=== PATIENT | female | born 1960 | race Caucasian/White ===

== ENCOUNTER 2023-02-27 14:29 | Observation (INO) | payer MEDICAID, SELFPAY ==
[2023-02-27] VITALS (11 sets, daily range): BP systolic 108–126; BP diastolic 64–78; PULSE 82–100; RESP 14–26; TEMP 37.1–37.2; O2SAT 88–99; BMI 44.1
--- NOTE | 2023-02-27 14:31 | XR_ITS ---
The [address] [address] Patient Name: DEREK CANO MRN: [id number] date: 1960 Sex: F Assigned Patient Location: ER Current Patient Location: ER Accession/Order Number: [id number] Exam Date: 02/27/2023 15:00 Report Date: 02/27/2023 15:12 At the request of: ROLDAN NGUYEN Procedure: XR chest 1V EXAM: XR chest 1V HISTORY: . Dyspnea . COMPARISON: 08/18/2022 TECHNIQUE: Single view of the chest FINDINGS: Heart and vascularity are unremarkable. Lungs are free of focal infiltrates. Atherosclerotic changes of the thoracic aorta are noted. Right shoulder arthroplasty is noted. IMPRESSION: No acute heart or lung disease identified. Electronically authenticated by: MICHELLE VAZ Date: 02/27/2023 15:12
--- NOTE | 2023-02-27 14:31 | ECG_ITS ---
The [facility] Test Date: 2023-02-27 Pat Name: DEREK CANO Department: Room: - Gender: Female International Coordinator: : 1960 Requested By: TAVIA BERKOWITZ Order Number: [id number] Reading MD: MARANDA PARSONS Measurements Intervals [place] Rate: 93 P: 72 NM: 134 QRS: 7 QRSD: 86 T: 55 QT: 350 QTc: 400 Interpretive Statements 1100 Sinus rhythm 8102 Low QRS voltage in chest leads 9120 atypical ECG No previous ECG available for comparison Electronically Signed On 02-27-2023 22:51:05 EDT by MARANDA PARSONS
--- NOTE | 2023-02-27 14:32 | ED_ITS ---
Documented by User: CLARENCE Johnson 02/27/23 17:56 HPI - SOB/Dyspnea General Chief Complaint: Shortness of Breath/Dyspnea Stated Complaint: SHORTNESS OF BREATH Time Seen by Provider: 02/27/23 14:31 Source: patient and family Mode of arrival: Wheelchair History of Present Illness HPI Narrative: Patient is a 62-year-old female who presents to the emergency department for the evaluation of shortness of breath. She was referred from her PCP office for a one-week history of shortness of breath, lower extremity swelling. 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 She was previously on oxygen at 2 L by nasal cannula chronically, one month ago the oxygen was removed as she did not follow up for a walk study per her PCP. She has had no fevers, she denies chest pain, vomiting, diarrhea. No other upper respiratory symptoms reported. Related Data Home Medications Medication Instructions Recorded Confirmed albuterol sulfate 90 mcg/actuation 2 inh inhalation Q4H PRN shortness 02/27/23 02/27/23 aerosol inhaler (ProAir HFA) of breath or wheezing aripiprazole 10 mg tablet (Abilify) 10 mg PO DAILY 02/27/23 02/27/23 atorvastatin 10 mg tablet 10 mg PO DAILY 02/27/23 02/27/23 calcium carbonate 600 mg-vitamin 1 tab PO BID 02/27/23 02/27/23 D3 10 mcg (400 unit) tablet (Calcium 600 + D(3)) diclofenac sodium 50 mg 50 mg PO BID PRN pain 02/27/23 02/27/23 tablet,delayed release duloxetine 30 mg capsule,delayed 30 mg PO .hs 02/27/23 02/27/23 release (Cymbalta) duloxetine 60 mg capsule,delayed 60 mg PO DAILY 02/27/23 02/27/23 release (Cymbalta) empagliflozin 10 mg tablet 10 mg PO DAILY 02/27/23 02/27/23 (Jardiance) fluticasone fur. 100 mcg-umeclid 1 inh inhalation DAILY 02/27/23 02/27/23 62.5 mcg-vilant 25 mcg inhalat.powder (Trelegy Ellipta) furosemide 20 mg tablet (Lasix) 20 mg PO DAILY 02/27/23 02/27/23 gabapentin 400 mg capsule 400 mg PO DAILY 02/27/23 02/27/23 ipratropium 0.5 mg-albuterol 3 mg 3 ml inhalation Q6H PRN shortness 02/27/23 02/27/23 (2.5 mg base)/3 mL nebulization of breath or wheezing soln lisinopril 5 mg tablet 5 mg PO DAILY 02/27/23 02/27/23 loratadine 10 mg tablet 10 mg PO DAILY 02/27/23 02/27/23 (Allerclear) metformin 1,000 mg 24 hr 1,000 mg PO BID 02/27/23 02/27/23 tablet,extended release (Glumetza) multivitamin (Daily Multi-Vitamin 1 tab PO DAILY 02/27/23 02/27/23 tablet) multivitamin (Daily Multi-Vitamin 1 tab PO DAILY 02/27/23 02/27/23 tablet) Allergies Allergy/AdvReac Type Severity Reaction Status Date / Time sulfamethoxazole Allergy Severe Verified 02/27/23 14:34 [From Bactrim] trimethoprim [From Bactrim] Allergy Severe Verified 02/27/23 14:34 Review of Systems ROS Constitutional Denies: fever or chills Cardiovascular Denies: chest pain Respiratory Reports: shortness of breath and cough Gastrointestinal Denies: nausea or vomiting Integumentary/Breast Denies: rash [facility] Medical History (Updated 02/27/23 @ 17:54 by CLARENCE Johnson) Social History Smoking status: Former smoker Previous occupational history: Retired, lives at home Tobacco Smoking status: Former smoker Occupational History Previous occupational history: Retired, lives at home Exam Narrative Exam Narrative: Gen.: Awake, alert, in no distress Head: Normocephalic, atraumatic ENT: Moist mucous membranes Respiratory: No respiratory distress, oxygen by nasal cannula, wheezing noted faintly on expiration Cardio: Regular rate and rhythm Gastrointestinal: Abdomen is soft, nondistended and nontender to palpation Extremities: Moves extremities equally, no injuries noted; bilateral lower extremities are edematous, erythematous with serous blisters noted. 2+ pitting edema bilaterally Psych: Normal mood and affect Neuro: No focal neuro deficit Skin: Warm, dry, intact Constitutional Vital Signs - 24 hr 02/27/23 14:35 02/27/23 14:57 02/27/23 15:39 Temperature 98.9 F Pulse Rate Pulse Rate [Monitor] 100 H Respiratory Rate 22 Blood Pressure Blood Pressure [Left Arm] 121/69 H Pulse Oximetry 88 L 99 Oxygen Delivery Method Room Air Nasal Cannula Nasal Cannula Oxygen Delivery Flow Rate 3 3 02/27/23 15:50 02/27/23 16:05 02/27/23 16:42 Temperature Pulse Rate 87 88 Pulse Rate [Monitor] Respiratory Rate 26 H 24 Blood Pressure 126/66 H 111/65 Blood Pressure [Left Arm] Pulse Oximetry 98 98 Oxygen Delivery Method Oxygen Delivery Flow Rate 02/27/23 17:16 02/27/23 17:17 Temperature Pulse Rate 88 Pulse Rate [Monitor] Respiratory Rate 26 H Blood Pressure 108/64 Blood Pressure [Left Arm] Pulse Oximetry 96 Oxygen Delivery Method Nasal Cannula Oxygen Delivery Flow Rate 3 3 Course Vital Signs Vital signs: Vital Signs Temperature 98.9 F 02/27/23 14:35 Pulse Rate 100 H 02/27/23 14:35 Respiratory Rate 22 02/27/23 14:35 Blood Pressure 121/69 H 02/27/23 14:35 Pulse Oximetry 88 L 02/27/23 14:35 Oxygen Delivery Method Room Air 02/27/23 14:35 Temperature 98.9 F 02/27/23 14:35 Pulse Rate 88 02/27/23 17:16 Respiratory Rate 26 H 02/27/23 17:16 Blood Pressure 108/64 02/27/23 17:16 Pulse Oximetry 96 02/27/23 17:16 Oxygen Delivery Method Nasal Cannula 02/27/23 17:17 Oxygen Delivery Flow Rate 3 02/27/23 17:17 MDM - SOB/Dyspnea MDM Narrative Medical decision making narrative: Patient was treated with DuoNeb breathing treatment and oxygen by nasal cannula with improvement. Lab studies show no evidence of acute congestive heart failure or other abnormalities, chest x-ray stable. Patient is unable to be set up with oxygen from the Emergency Room and based on clinical presentation and history we will admit overnight for observation for chronic obstructive pulmonary disease e xacerbation, hypoxia. She is treated with Solu-Medrol, azithromycin and Rocephin for chronic obstructive pulmonary disease coverage. Discussed with Dr. Jarquin for hospitalist service. Medical Records Attestation: I reviewed the patient's medical records. Lab Data Attestation: I reviewed the patient's lab results. Labs: Lab Results 02/27/23 Range/Units 14:50 WBC 10.4 (4.0-11.0) 10^3/uL RBC 4.87 (4.20-5.40) 10^6/uL Hgb 11.4 L (12.0-16.0) g/dL Hct 39.1 (36.0-48.0) % MCV 80.3 L (81.0-99.0) fL MCH 23.4 L (26.7-34.0) pg MCHC 29.2 L (29.9-35.2) g/dL RDW 18.8 H (11.0-15.0) % Plt Count 346 (150-450) 10^3/uL MPV 9.6 (9.5-13.5) fL Neut % (Auto) 79.6 H (43.0-75.0) % Lymph % (Auto) 11.1 L (20.5-60.0) % [place] % (Auto) 6.6 (1.7-12.0) % Eos % (Auto) 1.6 (0.9-7.0) % Baso % (Auto) 0.7 (0.2-2.0) % Neut # (Auto) 8.3 H (1.4-6.5) 10^3/uL Lymph # (Auto) 1.2 (1.2-3.8) 10^3/uL [place] # (Auto) 0.7 (0.3-0.8) 10^3/uL Eos # (Auto) 0.2 (0.0-0.7) 10^3/uL Baso # (Auto) 0.1 (0.0-0.1) 10^3/uL Abs Immat Gran (auto) 0.04 H (0.00-0.03) 10^3/uL Imm/Tot Granulo (auto) 0.4 (0.0-0.5) % PT 12.2 H (9.0-11.6) sec INR 1.16 APTT 27.1 (22.3-36.2) sec Sodium 139 (136-145) mmol/L Potassium 4.0 (3.5-5.1) mmol/L Chloride 102 (98-107) mmol/L Carbon Dioxide 30.4 (21.0-32.0) mmol/L Anion Gap 10.6 BUN 12.0 (7.0-18.0) mg/dL Creatinine 0.79 (0.55-1.02) mg/dL Est GFR ( Amer) >60 (>=60) Est GFR (Non-Af Amer) >60 (>=60) BUN/Creatinine Ratio 15.2 Glucose 118 H (74-106) mg/dL Calcium 9.0 (8.5-10.1) mg/dL Total Bilirubin 0.5 (0.2-1.0) mg/dL AST 17 (15-37) U/L ALT 19 (14-59) U/L Alkaline Phosphatase 93 (46-116) U/L Troponin I High Sens 8.4 (4.0-51.3) pg/mL NT-Pro-B Natriuret Pep 265.0 (<=900.0) pg/mL Total Protein 7.0 (6.4-8.2) g/dL Albumin 2.8 L (3.4-5.0) g/dL Globulin 4.2 g/dL Albumin/Globulin Ratio 0.7 ECG Data Attestation: I personally reviewed and interpreted this ECG as follows: (Normal sinus rhythm at a rate of ninety-three, no acute ST elevation or ectopy. EKG reviewed by attending physician) ECG interpretation date: 02/27/23 ECG interpretation time: 15:02 Discharge Plan Discharge Chief Complaint: Shortness of Breath/Dyspnea Clinical Impression: Hypoxia, Shortness of breath, Chronic obstructive pulmonary disease Patient Disposition: Admitted as Observation Time of Disposition Decision: 17:54 Condition: Fair Documented by User: Marc Wynne 02/27/23 18:05 HPI - SOB/Dyspnea General Chief Complaint: Shortness of Breath/Dyspnea Stated Complaint: SHORTNESS OF BREATH Time Seen by Provider: 02/27/23 14:31 Related Data Home Medications Medication Instructions Recorded Confirmed albuterol sulfate 90 mcg/actuation 2 inh inhalation Q4H PRN shortness 02/27/23 02/27/23 aerosol inhaler (ProAir HFA) of breath or wheezing aripiprazole 10 mg tablet (Abilify) 10 mg PO DAILY 02/27/23 02/27/23 atorvastatin 10 mg tablet 10 mg PO DAILY 02/27/23 02/27/23 calcium carbonate 600 mg-vitamin 1 tab PO BID 02/27/23 02/27/23 D3 10 mcg (400 unit) tablet (Calcium 600 + D(3)) diclofenac sodium 50 mg 50 mg PO BID PRN pain 02/27/23 02/27/23 tablet,delayed release duloxetine 30 mg capsule,delayed 30 mg PO .hs 02/27/23 02/27/23 release (Cymbalta) duloxetine 60 mg capsule,delayed 60 mg PO DAILY 02/27/23 02/27/23 release (Cymbalta) empagliflozin 10 mg tablet 10 mg PO DAILY 02/27/23 02/27/23 (Jardiance) fluticasone fur. 100 mcg-umeclid 1 inh inhalation DAILY 02/27/23 02/27/23 62.5 mcg-vilant 25 mcg inhalat.powder (Trelegy Ellipta) furosemide 20 mg tablet (Lasix) 20 mg PO DAILY 02/27/23 02/27/23 gabapentin 400 mg capsule 400 mg PO DAILY 02/27/23 02/27/23 ipratropium 0.5 mg-albuterol 3 mg 3 ml inhalation Q6H PRN shortness 02/27/23 02/27/23 (2.5 mg base)/3 mL nebulization of breath or wheezing soln lisinopril 5 mg tablet 5 mg PO DAILY 02/27/23 02/27/23 loratadine 10 mg tablet 10 mg PO DAILY 02/27/23 02/27/23 (Allerclear) metformin 1,000 mg 24 hr 1,000 mg PO BID 02/27/23 02/27/23 tablet,extended release (Glumetza) multivitamin (Daily Multi-Vitamin 1 tab PO DAILY 02/27/23 02/27/23 tablet) multivitamin (Daily Multi-Vitamin 1 tab PO DAILY 02/27/23 02/27/23 tablet) Allergies Allergy/AdvReac Type Severity Reaction Status Date / Time sulfamethoxazole Allergy Severe Verified 02/27/23 14:34 [From Bactrim] trimethoprim [From Bactrim] Allergy Severe Verified 02/27/23 14:34 [facility] Medical History (Updated 02/27/23 @ 17:54 by CLARENCE Johnson) Social History Smoking status: Former smoker Previous occupational history: Retired, lives at home Exam Constitutional Vital Signs - 24 hr 02/27/23 14:35 02/27/23 14:57 02/27/23 15:39 Temperature 98.9 F Pulse Rate Pulse Rate [Monitor] 100 H Respiratory Rate 22 Blood Pressure Blood Pressure [Left Arm] 121/69 H Pulse Oximetry 88 L 99 Oxygen Delivery Method Room Air Nasal Cannula Nasal Cannula Oxygen Delivery Flow Rate 3 3 02/27/23 15:50 02/27/23 16:05 02/27/23 16:42 Temperature Pulse Rate 87 88 Pulse Rate [Monitor] Respiratory Rate 26 H 24 Blood Pressure 126/66 H 111/65 Blood Pressure [Left Arm] Pulse Oximetry 98 98 Oxygen Delivery Method Oxygen Delivery Flow Rate 02/27/23 17:16 02/27/23 17:17 Temperature Pulse Rate 88 Pulse Rate [Monitor] Respiratory Rate 26 H Blood Pressure 108/64 Blood Pressure [Left Arm] Pulse Oximetry 96 Oxygen Delivery Method Nasal Cannula Oxygen Delivery Flow Rate 3 3 Course Vital Signs Vital signs: Vital Signs Temperature 98.9 F 02/27/23 14:35 Pulse Rate 100 H 02/27/23 14:35 Respiratory Rate 22 02/27/23 14:35 Blood Pressure 121/69 H 02/27/23 14:35 Pulse Oximetry 88 L 02/27/23 14:35 Oxygen Delivery Method Room Air 02/27/23 14:35 Temperature 98.9 F 02/27/23 14:35 Pulse Rate 88 02/27/23 17:16 Respiratory Rate 26 H 02/27/23 17:16 Blood Pressure 108/64 02/27/23 17:16 Pulse Oximetry 96 02/27/23 17:16 Oxygen Delivery Method Nasal Cannula 02/27/23 17:17 Oxygen Delivery Flow Rate 3 02/27/23 17:17 MDM - SOB/Dyspnea MDM Narrative Medical decision making narrative: Patient was treated with DuoNeb breathing treatment and oxygen by nasal cannula with improvement. Lab studies show no evidence of acute congestive heart failure or other abnormalities, chest x-ray stable. Patient is unable to be set up with oxygen from the Emergency Room and based on clinical presentation and history we will admit overnight for observation for chronic obstructive pulmonary disease exacerbation, hypoxia. She is treated with Solu-Medrol, azithromycin and Rocephin for chronic obstructive pulmonary disease coverage. Discussed with Dr. Jarquin for hospitalist service. For this patient encounter I reviewed the mid-level provider?s documentation, medical decision-making and treatment plan, and I personally spent time with this patient. Shared APC visit, physician attestation: [id number]: This visit was performed by both a physician and an APC. I personally evaluated and examined the patient. I performed all aspects of MDM as documented. - Roel, Lab Data Labs: Lab Results 02/27/23 Range/Units 14:50 WBC 10.4 (4.0-11.0) 10^3/uL RBC 4.87 (4.20-5.40) 10^6/uL Hgb 11.4 L (12.0-16.0) g/dL Hct 39.1 (36.0-48.0) % MCV 80.3 L (81.0-99.0) fL MCH 23.4 L (26.7-34.0) pg MCHC 29.2 L (29.9-35.2) g/dL RDW 18.8 H (11.0-15.0) % Plt Count 346 (150-450) 10^3/uL MPV 9.6 (9.5-13.5) fL Neut % (Auto) 79.6 H (43.0-75.0) % Lymph % (Auto) 11.1 L (20.5-60.0) % [place] % (Auto) 6.6 (1.7-12.0) % Eos % (Auto) 1.6 (0.9-7.0) % Baso % (Auto) 0.7 (0.2-2.0) % Neut # (Auto) 8.3 H (1.4-6.5) 10^3/uL Lymph # (Auto) 1.2 (1.2-3.8) 10^3/uL [place] # (Auto) 0.7 (0.3-0.8) 10^3/uL Eos # (Auto) 0.2 (0.0-0.7) 10^3/uL Baso # (Auto) 0.1 (0.0-0.1) 10^3/uL Abs Immat Gran (auto) 0.04 H (0.00-0.03) 10^3/uL Imm/Tot Granulo (auto) 0.4 (0.0-0.5) % PT 12.2 H (9.0-11.6) sec INR 1.16 APTT 27.1 (22.3-36.2) sec Sodium 139 (136-145) mmol/L Potassium 4.0 (3.5-5.1) mmol/L Chloride 102 (98-107) mmol/L Carbon Dioxide 30.4 (21.0-32.0) mmol/L Anion Gap 10.6 BUN 12.0 (7.0-18.0) mg/dL Creatinine 0.79 (0.55-1.02) mg/dL Est GFR ( Amer) >60 (>=60) Est GFR (Non-Af Amer) >60 (>=60) BUN/Creatinine Ratio 15.2 Glucose 118 H (74-106) mg/dL Calcium 9.0 (8.5-10.1) mg/dL Total Bilirubin 0.5 (0.2-1.0) mg/dL AST 17 (15-37) U/L ALT 19 (14-59) U/L Alkaline Phosphatase 93 (46-116) U/L Troponin I High Sens 8.4 (4.0-51.3) pg/mL NT-Pro-B Natriuret Pep 265.0 (<=900.0) pg/mL Total Protein 7.0 (6.4-8.2) g/dL Albumin 2.8 L (3.4-5.0) g/dL Globulin 4.2 g/dL Albumin/Globulin Ratio 0.7 Discharge Plan Discharge Chief Complaint: Shortness of Breath/Dyspnea Clinical Impression: Hypoxia, Shortness of breath, Chronic obstructive pulmonary disease Patient Disposition: Admitted as Observation Time of Disposition Decision: 17:54 Condition: Fair
[2023-02-27 15:35] LABS: Basophils Absolute Auto 0.1 10^3/uL (0.0-0.1); Basophils Percent Auto 0.7 % (0.2-2.0); Eosinophils Absolute Auto 0.2 10^3/uL (0.0-0.7); Eosinophils Percent Auto 1.6 % (0.9-7.0); Hematocrit 39.1 % (36.0-48.0); Hemoglobin 11.4 g/dL (12.0-16.0); Immature Granulocytes Abs Auto 0.04 10^3/uL (0.00-0.03); Immature Granulocytes Pct Auto 0.4 % (0.0-0.5); Lymphocytes Absolute Auto 1.2 10^3/uL (1.2-3.8); Lymphocytes Percent Auto 11.1 % (20.5-60.0); Mean Corpuscular HGB Conc 29.2 g/dL (29.9-35.2); Mean Corpuscular Hemoglobin 23.4 pg (26.7-34.0); Mean Corpuscular Volume 80.3 fL (81.0-99.0); Mean Platelet Volume 9.6 fL (9.5-13.5); Monocytes Absolute Auto 0.7 10^3/uL (0.3-0.8); Monocytes Percent Auto 6.6 % (1.7-12.0); Neutrophils Absolute Auto 8.3 10^3/uL (1.4-6.5); Neutrophils Percent Auto 79.6 % (43.0-75.0); Platelet Count 346 10^3/uL (150-450); Red Blood Count 4.87 10^6/uL (4.20-5.40); Red Cell Distribution Width 18.8 % (11.0-15.0); White Blood Count 10.4 10^3/uL (4.0-11.0)
[2023-02-27] MEDS: IPRATROPIUM/ALBUTEROL SULFATE 3 ML AMPUL.NEB IH (15:38)
[2023-02-27 15:44] LABS: INR 1.16; Partial Thromboplastin Time 27.1 sec (22.3-36.2); Prothrombin Time 12.2 sec (9.0-11.6)
[2023-02-27 15:59] LABS: Alanine Aminotransferase 19 U/L (14-59); Albumin Globulin Ratio 0.7; Albumin Level 2.8 g/dL (3.4-5.0); Alkaline Phosphatase 93 U/L (46-116); Anion Gap 10.6; Aspartate Amino Transferase 17 U/L (15-37); BUN Creatinine Ratio 15.2; Bilirubin Total 0.5 mg/dL (0.2-1.0); Carbon Dioxide 30.4 mmol/L (21.0-32.0); Chloride 102 mmol/L (98-107); Estimated GFR (African America >60 (>=60); Estimated GFR (Non-African Ame >60 (>=60); Globulin 4.2 g/dL; Glucose 118 mg/dL (74-106); Sodium 139 mmol/L (136-145); Troponin I High Sensitivity 8.4 pg/mL (4.0-51.3)
--- NOTE | 2023-02-27 16:26 | US_ITS ---
The [address] [address] Patient Name: DEREK CANO MRN: [id number] date: 1960 Sex: F Assigned Patient Location: ER Current Patient Location: ER Accession/Order Number: [id number] Exam Date: 02/27/2023 16:30 Report Date: 02/27/2023 17:12 At the request of: ROLDAN NGUYEN Procedure: US venous doppler LE BI US venous doppler LE BI HISTORY: DVT COMPARISON: None. TECHNIQUE: Evaluation of the deep veins of the bilateral lower extremities was performed utilizing B-mode, color flow and spectral analysis. FINDINGS: Right lower extremity: The visualized vessels comprising the deep venous systems from the common femoral vein through the calf veins demonstrate appropriate compressibility, spontaneous color Doppler flow, and augmentation of flow on spectral Doppler with distal compression. Left lower extremity: The visualized vessels comprising the deep venous systems from the common femoral vein through the calf veins demonstrate appropriate compressibility, spontaneous color Doppler flow, and augmentation of flow on spectral Doppler with distal compression. Additional findings: Bilateral mild subcutaneous edema. IMPRESSION: No sonographic evidence of deep venous thrombosis of the bilateral lower extremities. Electronically authenticated by: GERSON SALEH Date: 02/27/2023 17:12
[2023-02-27] MEDS: METHYLPREDNISOLONE SOD SUCC PF 125 MG/2 ML VIAL IVP (17:51)
[2023-02-27] MEDS: CEFTRIAXONE 1,000 MG in 0.9 % SODIUM CHLORIDE 50 ML 100 MG IV (17:54)
[2023-02-27] MEDS: AZITHROMYCIN 500 MG in 0.9 % SODIUM CHLORIDE 250 ML 250 MG IV (18:27)
--- NOTE | 2023-02-27 19:55 | PC.NURSE ---
tele #4 on pt for admission, ICU called to verify pt on tele monitor
--- NOTE | 2023-02-27 20:18 | PC.NURSE ---
report given to RICHARD Howell on MS
--- NOTE | 2023-02-27 22:02 | P.PN_ITS ---
Progress Note: Subjective Subjective Interval history: CC: SOB HPI: 62 yo WF with PMH of COPD, tobacco abuse, DM who presents with above complaints. Apparently patient has been on O2 at home up until recently when her O2 has been disconitinued. She feels SOB. Especially CHURCH. SHe denies any fever, chills or change in her sputum production. Evaluation in Ed was negative for signs of ainfection. Getting better with supplemental O2. Exam Narrative Exam Narrative: NAD, AAO X3, PERRLA, EOMI, Obese, lucide, cooperative Neck - supple, thyroid not enlarged, LNs not palpated Lungs - coarse BSs, decreased at bases, mild wheezing Heart - S1, S2, RRR, no murmurs ABd - obese, NT, ND + BSs Ext - trace edeema again Neuro - CN II-XII grosly intakt, no sensory deficits Joints - no effusion Constitutional Vital Signs - 24 hr 02/27/23 14:35 02/27/23 14:57 02/27/23 15:39 Temperature 98.9 F Pulse Rate Pulse Rate [Monitor] 100 H Respiratory Rate 22 Blood Pressure Blood Pressure [Left Arm] 121/69 H Blood Pressure [Right Arm] Pulse Oximetry 88 L 99 Oxygen Delivery Method Room Air Nasal Cannula Nasal Cannula Oxygen Delivery Flow Rate 3 3 02/27/23 15:50 02/27/23 16:05 02/27/23 16:42 Temperature Pulse Rate 87 88 Pulse Rate [Monitor] Respiratory Rate 26 H 24 Blood Pressure 126/66 H 111/65 Blood Pressure [Left Arm] Blood Pressure [Right Arm] Pulse Oximetry 98 98 Oxygen Delivery Method Oxygen Delivery Flow Rate 02/27/23 17:16 02/27/23 17:17 02/27/23 18:17 Temperature Pulse Rate 88 Pulse Rate [Monitor] Respiratory Rate 26 H Blood Pressure 108/64 109/73 Blood Pressure [Left Arm] Blood Pressure [Right Arm] Pulse Oximetry 96 98 Oxygen Delivery Method Nasal Cannula Oxygen Delivery Flow Rate 3 3 3 02/27/23 19:18 02/27/23 21:13 02/27/23 21:12 Temperature 98.7 F 98.7 F Pulse Rate 86 82 82 Pulse Rate [Monitor] Respiratory Rate 24 14 14 Blood Pressure 126/78 H Blood Pressure [Left Arm] 121/69 H Blood Pressure [Right Arm] 122/78 H 122/78 H Pulse Oximetry 98 95 95 Oxygen Delivery Method Nasal Cannula Nasal Cannula Oxygen Delivery Flow Rate 3 3 3 02/27/23 21:12 02/27/23 21:12 02/27/23 22:00 Temperature Pulse Rate 90 Pulse Rate [Monitor] 82 92 H Respiratory Rate 14 14 Blood Pressure Blood Pressure [Left Arm] Blood Pressure [Right Arm] Pulse Oximetry 91 L Oxygen Delivery Method Nasal Cannula Oxygen Delivery Flow Rate 3 Progress Note: Objective Labs Labs: Short CBC 02/27/23 Range/Units 14:50 WBC 10.4 (4.0-11.0) 10^3/uL Hgb 11.4 L (12.0-16.0) g/dL Hct 39.1 (36.0-48.0) % Plt Count 346 (150-450) 10^3/uL BMP 02/27/23 14:50 Sodium 139 Potassium 4.0 Chloride 102 Carbon Dioxide 30.4 BUN 12.0 Creatinine 0.79 Glucose 118 H Calcium 9.0 Liver Function 02/27/23 Range/Units 14:50 Total Bilirubin 0.5 (0.2-1.0) mg/dL AST 17 (15-37) U/L ALT 19 (14-59) U/L Alkaline Phosphatase 93 (46-116) U/L Albumin 2.8 L (3.4-5.0) g/dL Progress Note: A&P Assessment and Plan (1) Hypoxia: Assessment and Plan: corrected with supplemental O2, probably needs and O2 home arrangement (2) Shortness of breath: Assessment and Plan: related to underlying COPD, better with supplemental O2 (3) Chronic obstructive pulmonary disease: Assessment and Plan: seems to be compensated, - continue with current home regiment Plan DM - continue home medications, adjust as needed Obesity - differ for OP management Telemedicine Attestation Telemedicine Attestation I conducted this encounter from [[place]] via secure live, [id number] video conference with the patient, CHARGE TEST-CHARGES located at [facility] with hypoxia[]. Prior to the interview, the risks and benefits of telemedicine were discussed with the patient and verbal consent was obtained.
[2023-02-27 22:33] LABS: Glucometer 169 mg/dL (74-106)
[2023-02-27] MEDS: ARIPIPRAZOLE 5 MG TABLET 10 MG PO (23:25)
[2023-02-27] MEDS: METFORMIN HCL 500 MG TABLET 1000 MG PO (23:25)
[2023-02-27] MEDS: ATORVASTATIN CALCIUM 10 MG TABLET PO (23:25)
[2023-02-27] MEDS: DULOXETINE HCL 30 MG CAPSULE.DR PO (23:26)
[2023-02-28] VITALS (9 sets, daily range): BP systolic 124–127; BP diastolic 75–78; PULSE 85–95; RESP 16–22; TEMP 36.8–36.9; O2SAT 79–98; BMI 46.7
[2023-02-28] MEDS: ALBUTEROL SULFATE 2.5 MG/3 ML VIAL NEB IH ×2 (05:05→11:27)
[2023-02-28 05:27] LABS: Alanine Aminotransferase 19 U/L (14-59); Albumin Globulin Ratio 0.6; Albumin Level 2.6 g/dL (3.4-5.0); Alkaline Phosphatase 84 U/L (46-116); Anion Gap 11.8; Aspartate Amino Transferase 16 U/L (15-37); Bilirubin Total 0.3 mg/dL (0.2-1.0); Calcium 8.6 mg/dL (8.5-10.1); Carbon Dioxide 28.7 mmol/L (21.0-32.0); Chloride 103 mmol/L (98-107); Estimated GFR (African America >60 (>=60); Estimated GFR (Non-African Ame >60 (>=60); Globulin 4.3 g/dL; Glucose 151 mg/dL (74-106); Potassium 4.5 mmol/L (3.5-5.1); Sodium 139 mmol/L (136-145); Total Protein 6.9 g/dL (6.4-8.2)
[2023-02-28 08:15] LABS: Glucometer 155 mg/dL (74-106)
--- NOTE | 2023-02-28 09:21 | P.HP_ITS ---
H&P: HPI History of Present Illness Chief complaint: SHORTNESS OF BREATH, hypoxia, copd Narrative: patient is a 62-year-old female with past medical history of chronic hypoxia secondary to chronic obstructive pulmonary disease. She reports that she was using 3 L of nasal cannula oxygen up until about one month ago when her oxygen company came and removed her oxygen because she was doing so well on her recent walk test in the office by her PCP. She said since that month has been going on and she has been experiencing more shortness of breath even with small steps, no chest pain, and she has only been able to smoke two cigarettes a day which is unusual for her. She denies any fevers chills associated with her shortness of breath. In the emergency department they were concerned about her bilateral lower extremity edema and Doppler studies were negative for deep vein thrombosis. Her chest x-ray showed no signs of acute pneumonia. Her proBNP was in normal range and no signs of heart failure. She was admitted for acute on chronic hypoxia, shortness of breath and the need for her home oxygen reinstated as well as a chronic obstructive pulmonary disease exacerbation. This morning she says she feels much better since being back on her oxygen she denies any further shortness of breath fevers chills chest pain or cough. patient does have diabetes and has noticed with the warmer temperatures some swelling in both of her lower legs. Review of Systems ROS Narrative ROS: a complete review of systems were reviewed with patient and are positive as below or listed in History of Chief Complaint. General: no fever, chills, night sweats Head: no headache, trauma, visual changes, nausea or vomiting Skin: no reported rashes, itching or sores Eyes: no blurriness of vision Ears: no reported hearing loss, vertigo, earache, or tinnitus Throat: no sore throat, hoarseness, swelling of neck, or tongue pain Heart: no chest pain Lungs: no shortness of breath or cough GI: no diarrhea or vomiting/nausea Urinary: no urinary urgency, frequency or pain Neuro: no numbness or tingling HEM: no bleeding issues or bruising ENDO: no thyroid problems Psych: no anxiety or depression [facility] Medical History (Updated 02/28/23 @ 12:30 by Sally Jarquin DO) Social History Smoking status: Former smoker Previous occupational history: Retired, lives at home Do you think of yourself as: straight/heterosexual Gender Identity: female Meds Home Medications and Allergies Home Medications Medication Instructions Recorded Confirmed Type albuterol sulfate 90 mcg/actuation 2 inh inhalation Q4H PRN shortness 02/27/23 02/27/23 History aerosol inhaler (ProAir HFA) of breath or wheezing aripiprazole 10 mg tablet (Abilify) 10 mg PO DAILY 02/27/23 02/27/23 History atorvastatin 10 mg tablet 10 mg PO DAILY 02/27/23 02/27/23 History calcium carbonate 600 mg-vitamin 1 tab PO BID 02/27/23 02/27/23 History D3 10 mcg (400 unit) tablet (Calcium 600 + D(3)) diclofenac sodium 50 mg 50 mg PO BID PRN pain 02/27/23 02/27/23 History tablet,delayed release duloxetine 30 mg capsule,delayed 30 mg PO BEDTIME 02/27/23 02/27/23 History release (Cymbalta) duloxetine 60 mg capsule,delayed 60 mg PO DAILY 02/27/23 02/27/23 History release (Cymbalta) empagliflozin 10 mg tablet 10 mg PO DAILY 02/27/23 02/27/23 History (Jardiance) fluticasone fur. 100 mcg-umeclid 1 inh inhalation DAILY 02/27/23 02/27/23 History 62.5 mcg-vilant 25 mcg inhalat.powder (Trelegy Ellipta) furosemide 20 mg tablet (Lasix) 20 mg PO DAILY 02/27/23 02/27/23 History gabapentin 400 mg capsule 400 mg PO DAILY 02/27/23 02/27/23 History ipratropium 0.5 mg-albuterol 3 mg 3 ml inhalation Q6H PRN shortness 02/27/23 02/27/23 History (2.5 mg base)/3 mL nebulization of breath or wheezing soln lisinopril 5 mg tablet 5 mg PO DAILY 02/27/23 02/27/23 History loratadine 10 mg tablet 10 mg PO DAILY 02/27/23 02/27/23 History (Allerclear) metformin 1,000 mg 24 hr 1,000 mg PO BID 06/19/23 06/19/23 History tablet,extended release (Glumetza) multivitamin (Daily Multi-Vitamin 1 tab PO DAILY 02/27/23 02/27/23 History tablet) Allergies Allergy/AdvReac Type Severity Reaction Status Date / Time sulfamethoxazole Allergy Severe Verified 02/27/23 14:34 [From Bactrim] trimethoprim [From Bactrim] Allergy Severe Verified 02/27/23 14:34 Exam Narrative Exam Narrative: General: Patient is alert, and oriented to person, place and time with normal affect, proper hygiene Skin: no visible rashes, or ulcers Head: atraumatic, acephalic Eyes: PERRLA, no nystagmus present, conjunctiva clear, no scleral icterus Ears: normal gross auditory acuity Nose: symmetric, no discharge, no maxillary or frontal sinus tenderness Mouth/Throat: no dentition Neck: no masses palpated, normal thyroid, no JVD or audible carotid bruits Heart: Normal rate and rhythm, no murmurs/rubs/gallops Lungs: no audible wheezes, crackles and normal breath sounds all lung galindo Abdomen: Normal audible bowel sounds, no distension, No palpable masses, no organomegaly, no rebound/guarding/ or rigidity Musculoskeletal: muscle atrophy noted, ROM is limited due to being in hospital bed, 2+ swelling bilateral lower extremities with stasis dermatitis Vascular: Normal carotid, radial, femoral, posterior tibial, and dorsalis pedis pulses Lymph: no supraclavicular, axillary, or anterior/posterior cervical adenopathy Neuro: CN II-X grossly intact, normal sensation upper and lower extremities Constitutional Vital Signs - 24 hr 02/27/23 14:35 02/27/23 14:57 02/27/23 15:39 Temperature 98.9 F Pulse Rate Pulse Rate [Monitor] 100 H Respiratory Rate 22 Blood Pressure Blood Pressure [Left Arm] 121/69 H Blood Pressure [Right Arm] Pulse Oximetry 88 L 99 Oxygen Delivery Method Room Air Nasal Cannula Nasal Cannula Oxygen Delivery Flow Rate 3 3 02/27/23 15:50 02/27/23 16:05 02/27/23 16:42 Temperature Pulse Rate 87 88 Pulse Rate [Monitor] Respiratory Rate 26 H 24 Blood Pressure 126/66 H 111/65 Blood Pressure [Left Arm] Blood Pressure [Right Arm] Pulse Oximetry 98 98 Oxygen Delivery Method Oxygen Delivery Flow Rate 02/27/23 17:16 02/27/23 17:17 02/27/23 18:17 Temperature Pulse Rate 88 Pulse Rate [Monitor] Respiratory Rate 26 H Blood Pressure 108/64 109/73 Blood Pressure [Left Arm] Blood Pressure [Right Arm] Pulse Oximetry 96 98 Oxygen Delivery Method Nasal Cannula Oxygen Delivery Flow Rate 3 3 3 02/27/23 19:18 02/27/23 21:13 02/27/23 21:12 Temperature 98.7 F 98.7 F Pulse Rate 86 82 82 Pulse Rate [Monitor] Respiratory Rate 24 14 14 Blood Pressure 126/78 H Blood Pressure [Left Arm] 121/69 H Blood Pressure [Right Arm] 122/78 H 122/78 H Pulse Oximetry 98 95 95 Oxygen Delivery Method Nasal Cannula Nasal Cannula Oxygen Delivery Flow Rate 3 3 3 02/27/23 21:12 02/27/23 21:12 02/27/23 22:00 Temperature Pulse Rate 90 Pulse Rate [Monitor] 82 92 H Respiratory Rate 14 14 Blood Pressure Blood Pressure [Left Arm] Blood Pressure [Right Arm] Pulse Oximetry 91 L Oxygen Delivery Method Nasal Cannula Oxygen Delivery Flow Rate 3 02/27/23 22:00 02/28/23 05:05 02/28/23 05:14 Temperature 98.7 F Pulse Rate 92 H 85 85 Pulse Rate [Monitor] Respiratory Rate 18 18 18 Blood Pressure Blood Pressure [Left Arm] Blood Pressure [Right Arm] 122/78 H Pulse Oximetry 94 L 93 L Oxygen Delivery Method Nasal Cannula Oxygen Delivery Flow Rate 3 02/28/23 05:22 02/28/23 09:11 Temperature 98.2 F Pulse Rate 87 Pulse Rate [Monitor] Respiratory Rate 22 16 Blood Pressure Blood Pressure [Left Arm] Blood Pressure [Right Arm] 127/78 H Pulse Oximetry 94 L Oxygen Delivery Method Nasal Cannula Oxygen Delivery Flow Rate 3 Results Labs Labs: Short CBC 02/27/23 Range/Units 14:50 WBC 10.4 (4.0-11.0) 10^3/uL Hgb 11.4 L (12.0-16.0) g/dL Hct 39.1 (36.0-48.0) % Plt Count 346 (150-450) 10^3/uL BMP 02/27/23 02/28/23 14:50 04:35 Sodium 139 139 Potassium 4.0 4.5 Chloride 102 103 Carbon Dioxide 30.4 28.7 BUN 12.0 17.0 Creatinine 0.79 0.74 Glucose 118 H 151 H Calcium 9.0 8.6 Liver Function 02/27/23 02/28/23 Range/Units 14:50 04:35 Total Bilirubin 0.5 0.3 (0.2-1.0) mg/dL AST 17 16 (15-37) U/L ALT 19 19 (14-59) U/L Alkaline Phosphatase 93 84 (46-116) U/L Albumin 2.8 L 2.6 L (3.4-5.0) g/dL Assessment and Plan Assessment and Plan (1) Acute on chronic respiratory failure with hypoxemia: Assessment and Plan: patient had a walk test with no oxygen/room air and patient saturated at seventy-nine percent she will require home oxygen continuous at 3 L NC. as will be set up for patient to take home today. Will encourage her to continue her pro-air as needed, Trelegy, duo nebulizers as outpatient and close follow-up with her primary care provider. (2) Decompensated COPD with exacerbation (chronic obstructive pulmonary disease): Assessment and Plan: Will treat with a five day course of azithromycin as outpatient and close follow-up with her primary care provider, there was no evidence of pneumonia on chest x-ray. (3) Bilateral edema of lower extremity: Assessment and Plan: bilateral venous Dopplers were negative for deep vein thromboses, I think this is more chronic stasis, normal range pro BNP, recommend to continue her Lasix. (4) Diabetes: Assessment and Plan: continue home medications of metformin, and Jardiance, (5) Hypercholesteremia: Assessment and Plan: continue atorvastatin (6) Hypertension: Assessment and Plan: continue lisinopril, blood pressure is controlled at this time (7) Tobacco abuse: Assessment and Plan: no desire to quit but encouraged her to not smoke while using oxygen (8) Obesity: Assessment and Plan: some weight loss would provide improvement in breathing symptoms. Plan patient is a full code Patient is admitted under observation status and is not expected to stay more than two midnights Will place on Lovenox for deep vein thrombosis prophylaxis
[2023-02-28] MEDS: CETIRIZINE HCL 10 MG TABLET PO (09:50)
[2023-02-28] MEDS: FUROSEMIDE 20 MG TABLET PO (09:50)
[2023-02-28] MEDS: DULOXETINE HCL 60 MG CAPSULE.DR PO (09:50)
[2023-02-28] MEDS: ENOXAPARIN SODIUM 30 MG/0.3 ML SYRINGE SUBQ (09:51)
[2023-02-28] MEDS: METFORMIN HCL 500 MG TABLET 1000 MG PO (09:51)
[2023-02-28] MEDS: CALCIUM CARBONATE/VITAMIN D3 1 EACH TABLET 1 TAB PO (09:51)
[2023-02-28] MEDS: GABAPENTIN 400 MG CAPSULE PO (09:51)
[2023-02-28] MEDS: CANAGLIFLOZIN 100 MG TABLET PO (09:59)
[2023-02-28] MEDS: LISINOPRIL 5 MG TABLET PO (09:59)
[2023-02-28] MEDS: MULTIVITAMIN TABLET 400 TAB PO (10:00)
--- NOTE | 2023-02-28 11:07 | PC.NURSE ---
Patient was placed on room air. Oxygen level on room air at rest was 98%. Oxygen level with exercise on room air is 79%. Patient placed on 3 LMP O2, patient's oxygen level with exercise on oxygen is 93%.
[2023-02-28 11:19] LABS: Glucometer 166 mg/dL (74-106)
[2023-02-28] MEDS: BUDESONIDE 0.5 MG/2 ML AMPULE NEB IH (11:27)
--- NOTE | 2023-02-28 11:29 | RESP.RT ---
Decreased to 2 LPM
--- NOTE | 2023-02-28 12:17 | SWNOTE1 ---
SW met with pt to discuss dc needs. Pt lives at home with her family. Pt is independent at home, does not use any DME to ambulate around. Pt did have home oxygen through [employer] ([employer]), but did not renew it. Pt does qualify to have home oxygen again, walk test completed by nursing. Pt would like to use [employer] ([employer] again. SW to send referral once script and face to face documentation completed.
--- NOTE | 2023-02-28 12:36 | PM.DS1 ---
DS: Providers Provider Date of admission: 02/27/23 19:55 Primary care physician: Jamie Middleton Discharging clinician: Sally Jarquin DS: Diagnosis Discharge Diagnosis (1) Acute on chronic respiratory failure with hypoxemia: Assessment and plan: patient had a walk test with no oxygen/room air and patient saturated at seventy-nine percent she will require home oxygen continuous at 3 L NC. as will be set up for patient to take home today. Will encourage her to continue her pro-air as needed, Trelegy, duo nebulizers as outpatient and close follow-up with her primary care provider. (2) Decompensated COPD with exacerbation (chronic obstructive pulmonary disease): Assessment and plan: Will treat with a five day course of azithromycin as outpatient and close follow-up with her primary care provider, there was no evidence of pneumonia on chest x-ray (3) Bilateral edema of lower extremity: Assessment and plan: bilateral venous Dopplers were negative for deep vein thromboses, I think this is more chronic stasis, normal range pro BNP, recommend to continue her Lasix. (4) Diabetes: Assessment and plan: continue home medications of metformin, and Jardiance (5) Hypercholesteremia: Assessment and plan: continue atorvastatin (6) Hypertension: Assessment and plan: continue lisinopril, blood pressure is controlled at this time (7) Tobacco abuse: Assessment and plan: no desire to quit but encouraged her to not smoke while using oxygen (8) Obesity: Assessment and plan: weight loss would provide improvement in breathing symptoms DS: Summary Status at Discharge Cognitive/behavioral status at discharge: patient is a 62-year-old female with past medical history of chronic hypoxia secondary to chronic obstructive pulmonary disease. She reports that she was using 3 L of nasal cannula oxygen up until about one month ago when her oxygen company came and removed her oxygen because she was doing so well on her recent walk test in the office by her PCP. She said since that month has been going on and she has been experiencing more shortness of breath even with small steps, no chest pain, and she has only been able to smoke two cigarettes a day which is unusual for her. She denies any fevers chills associated with her shortness of breath. In the emergency department they were concerned about her bilateral lower extremity edema and Doppler studies were negative for deep vein thrombosis. Her chest x-ray showed no signs of acute pneumonia. Her proBNP was in normal range and no signs of heart failure. She was admitted for acute on chronic hypoxia, shortness of breath and the need for her home oxygen reinstated as well as a chronic obstructive pulmonary disease exacerbation. This morning she says she feels much better since being back on her oxygen she denies any further shortness of breath fevers chills chest pain or cough. patient does have diabetes and has noticed with the warmer temperatures some swelling in both of her lower legs Functional status at discharge: independent ambulation Overall status at discharge: patient is back to baseline Time Spent with Patient Time attestation: Total time spent providing and/or coordinating discharge services: Exam Narrative Exam Narrative: no changes to the physical exam that was performed during the admission H and P Constitutional Vital Signs - 24 hr 02/27/23 14:35 02/27/23 14:57 02/27/23 15:39 Temperature 98.9 F Pulse Rate Pulse Rate [Monitor] 100 H Respiratory Rate 22 Blood Pressure Blood Pressure [Left Arm] 121/69 H Blood Pressure [Right Arm] Pulse Oximetry 88 L 99 Oxygen Delivery Method Room Air Nasal Cannula Nasal Cannula Oxygen Delivery Flow Rate 3 3 02/27/23 15:50 02/27/23 16:05 02/27/23 16:42 Temperature Pulse Rate 87 88 Pulse Rate [Monitor] Respiratory Rate 26 H 24 Blood Pressure 126/66 H 111/65 Blood Pressure [Left Arm] Blood Pressure [Right Arm] Pulse Oximetry 98 98 Oxygen Delivery Method Oxygen Delivery Flow Rate 02/27/23 17:16 02/27/23 17:17 02/27/23 18:17 Temperature Pulse Rate 88 Pulse Rate [Monitor] Respiratory Rate 26 H Blood Pressure 108/64 109/73 Blood Pressure [Left Arm] Blood Pressure [Right Arm] Pulse Oximetry 96 98 Oxygen Delivery Method Nasal Cannula Oxygen Delivery Flow Rate 3 3 3 02/27/23 19:18 02/27/23 21:13 02/27/23 21:12 Temperature 98.7 F 98.7 F Pulse Rate 86 82 82 Pulse Rate [Monitor] Respiratory Rate 24 14 14 Blood Pressure 126/78 H Blood Pressure [Left Arm] 121/69 H Blood Pressure [Right Arm] 122/78 H 122/78 H Pulse Oximetry 98 95 95 Oxygen Delivery Method Nasal Cannula Nasal Cannula Oxygen Delivery Flow Rate 3 3 3 02/27/23 21:12 02/27/23 21:12 02/27/23 22:00 Temperature Pulse Rate 90 Pulse Rate [Monitor] 82 92 H Respiratory Rate 14 14 Blood Pressure Blood Pressure [Left Arm] Blood Pressure [Right Arm] Pulse Oximetry 91 L Oxygen Delivery Method Nasal Cannula Oxygen Delivery Flow Rate 3 02/27/23 22:00 02/28/23 05:05 02/28/23 05:14 Temperature 98.7 F Pulse Rate 92 H 85 85 Pulse Rate [Monitor] Respiratory Rate 18 18 18 Blood Pressure Blood Pressure [Left Arm] Blood Pressure [Right Arm] 122/78 H Pulse Oximetry 94 L 93 L Oxygen Delivery Method Nasal Cannula Oxygen Delivery Flow Rate 3 02/28/23 05:22 02/28/23 09:11 02/28/23 11:07 Temperature 98.2 F Pulse Rate 87 Pulse Rate [Monitor] Respiratory Rate 22 16 Blood Pressure Blood Pressure [Left Arm] Blood Pressure [Right Arm] 127/78 H Pulse Oximetry 94 L Oxygen Delivery Method Nasal Cannula Oxygen Delivery Flow Rate 3 3 02/28/23 11:27 02/28/23 11:28 02/28/23 11:44 Temperature Pulse Rate 95 H 95 H Pulse Rate [Monitor] Respiratory Rate Blood Pressure Blood Pressure [Left Arm] Blood Pressure [Right Arm] Pulse Oximetry 94 L 94 L Oxygen Delivery Method Nasal Cannula Oxygen Delivery Flow Rate 3 DS: Data Data Completed and Pending Labs on day of discharge: Labs from last 24 hours 02/28/23 02/28/23 02/28/23 11:16 08:13 04:35 WBC RBC Hgb Hct MCV MCH MCHC RDW Plt Count MPV Neut % (Auto) Lymph % (Auto) [place] % (Auto) Eos % (Auto) Baso % (Auto) Neut # (Auto) Lymph # (Auto) [place] # (Auto) Eos # (Auto) Baso # (Auto) Abs Immat Gran (auto) Imm/Tot Granulo (auto) PT INR APTT Sodium 139 Potassium 4.5 Chloride 103 Carbon Dioxide 28.7 Anion Gap 11.8 BUN 17.0 Creatinine 0.74 Est GFR ( Amer) >60 Est GFR (Non-Af Amer) >60 BUN/Creatinine Ratio 23.0 Glucose 151 H Calcium 8.6 Total Bilirubin 0.3 AST 16 ALT 19 Alkaline Phosphatase 84 Troponin I High Sens NT-Pro-B Natriuret Pep Total Protein 6.9 Albumin 2.6 L Globulin 4.3 Albumin/Globulin Ratio 0.6 POC Glucose 166 H 155 H 02/27/23 02/27/23 22:31 14:50 WBC 10.4 RBC 4.87 Hgb 11.4 L Hct 39.1 MCV 80.3 L MCH 23.4 L MCHC 29.2 L RDW 18.8 H Plt Count 346 MPV 9.6 Neut % (Auto) 79.6 H Lymph % (Auto) 11.1 L [place] % (Auto) 6.6 Eos % (Auto) 1.6 Baso % (Auto) 0.7 Neut # (Auto) 8.3 H Lymph # (Auto) 1.2 [place] # (Auto) 0.7 Eos # (Auto) 0.2 Baso # (Auto) 0.1 Abs Immat Gran (auto) 0.04 H Imm/Tot Granulo (auto) 0.4 PT 12.2 H INR 1.16 APTT 27.1 Sodium 139 Potassium 4.0 Chloride 102 Carbon Dioxide 30.4 Anion Gap 10.6 BUN 12.0 Creatinine 0.79 Est GFR ( Amer) >60 Est GFR (Non-Af Amer) >60 BUN/Creatinine Ratio 15.2 Glucose 118 H Calcium 9.0 Total Bilirubin 0.5 AST 17 ALT 19 Alkaline Phosphatase 93 Troponin I High Sens 8.4 NT-Pro-B Natriuret Pep 265.0 Total Protein 7.0 Albumin 2.8 L Globulin 4.2 Albumin/Globulin Ratio 0.7 POC Glucose 169 H Discharge Plan Discharge Disposition: Home, Self-Care (OBS FBC) Condition: Fair Discharge Medications: New azithromycin 250 mg tablet 250 mg PO DAILY 4 Days Qty: 4 0RF Rx Instructions: start on day 2 of therapy Continued furosemide [Lasix] 20 mg tablet 20 mg PO DAILY Jardiance 10 mg tablet 10 mg PO DAILY gabapentin 400 mg capsule 400 mg PO DAILY aripiprazole [Abilify] 10 mg tablet 10 mg PO DAILY duloxetine [Cymbalta] 60 mg capsule,delayed release(DR/EC) 60 mg PO DAILY duloxetine [Cymbalta] 30 mg capsule,delayed release(DR/EC) 30 mg PO BEDTIME loratadine [Allerclear] 10 mg tablet 10 mg PO DAILY atorvastatin 10 mg tablet 10 mg PO DAILY metformin [Glumetza] 1,000 mg tablet,ER frida.retention 24 hr 1,000 mg PO BID lisinopril 5 mg tablet 5 mg PO DAILY ipratropium-albuterol 0.5 mg-3 mg(2.5 mg base)/3 mL solution for nebulization 3 ml inhalation Q6H PRN (Reason: shortness of breath or wheezing) diclofenac sodium 50 mg tablet,delayed release (DR/EC) 50 mg PO BID PRN (Reason: pain) albuterol sulfate [ProAir HFA] 90 mcg/actuation HFA aerosol inhaler 2 inh inhalation Q4H PRN (Reason: shortness of breath or wheezing) multivitamin [Daily Multi-Vitamin] Tablet 1 tab PO DAILY Trelegy Ellipta 100-62.5-25 mcg blister with device 1 inh inhalation DAILY calcium carbonate-vitamin D3 [Calcium 600 + D(3)] 600 mg-10 mcg (400 unit) tablet 1 tab PO BID Discharge Orders: Discharge Order (Routine); Ordered 02/28/23 Ordered By: Sally Jarquin Activity: increase activity as tolerated and wear oxygen at all times Diet: advance to your usual diet Follow Up Appointments: jamie Melissa 3-5 days
--- NOTE | 2023-02-28 12:44 | CM.NOTE ---
Rounds made with Dr. Jarquin. Plan for discharge today. Will require oxygen @ 3L/NC continuous. Verbalizes understanding.
--- NOTE | 2023-02-28 14:22 | SWNOTE1 ---
SW received call from [facility] and they need a different walk test that shows pt ambulating without oxygen. SW spoke with nursing. Walk test documented differently and sent to [email or web address].
--- NOTE | 2023-02-28 15:56 | SWNOTE1 ---
ANITA called [employer] again to check on oxygen and they are waiting for approval from insurance company. ANITA to call back again in 20 minutes.
[2023-02-28 16:02] LABS: Glucometer 114 mg/dL (74-106)
--- NOTE | 2023-03-03 16:06 | CM.DCFOLLOWU ---
Person spoke with: Victoria How are you feeling? better How is your pain? none Did you understand your discharge instructions? yes Do you have any questions about your discharge instructions? no Were you given any prescriptions at discharge? yes Were you able to get your prescriptions filled? yes Do you understand how to take your medications as ordered? yes Do you have any questions about your follow up appointment and do you plan to keep your follow up appointment? No it is already scheduled Is there anything else that you would like to discuss? Yes... having blood in urine. Pt had already notified doctor's office and has appt on Monday scheduled. Pt not having fever or any burning with urination. Questions/Comments/Concerns/Other:
== END 2023-02-28 17:50 | disposition home or self-care (01) ==
LOC: ER 17:54 → MS 20:34
PROVIDERS: Physician Assistant; Admitting Provider Internal Medicine; Emergency Provider Emergency Medicine; PCP Nurse Practitioner; Visit Provider Family Medicine
DX: J96.21 Acute and chronic respiratory failure with hypoxia (principal); J44.1 Chronic obstructive pulmonary disease with (acute) exacerbation; E11.9 Type 2 diabetes mellitus without complications; E78.00 Pure hypercholesterolemia, unspecified; I10 Essential (primary) hypertension; F17.210 Nicotine dependence, cigarettes, uncomplicated; E66.9 Obesity, unspecified; Z68.42 Body mass index [BMI] 45.0-49.9, adult; Z79.899 Other long term (current) drug therapy; Z79.84 Long term (current) use of oral hypoglycemic drugs; Z99.81 Dependence on supplemental oxygen
CPT/HCPCS: 36415; 71045; 80053; 83880; 84484; 85025; 85610; 85730; 93005; 93970; 94618; 94640; 94761; 96365; 96367; 96372; 96375; 99285; G0378; J0456; J2930